=== PATIENT | male | born 1955 | race African-American/Black ===

== ENCOUNTER 2019-07-12 13:23 | Emergency (ER) | payer MEDICARE, OTHER ==
[~2019-07-12] VITALS: Ht 167.6 cm; Wt 85.0 kg
[2019-07-12] MEDS ORDERED: MECLIZINE 25MG TABLET PO ONE (17:45)
[2019-07-12 18:15] LABS: BASOPHILS % 1.1 % (0.0-2.0); EOSINOPHILS % 3.3 % (0.0-5.0); HEMATOCRIT. 44.8 % (42.0-52.0); HEMOGLOBIN. 15.2 g/dL (14.0-18.0); MEAN CORPUSCULAR HEMOGLOBIN 32.8 pg (28.0-32.0); MEAN CORPUSCULAR VOLUME 96.4 fL (80.0-94.0); MONOCYTES % 10.3 % (2.0-8.0); NEUTROPHILS % 58.3 % (40.0-76.0); PLATELET 225 x1000/uL (130-400); RED BLOOD CELL COUNT 4.65 mill/uL (4.7-6.1)
[2019-07-12 18:16] LABS: CHLORIDE 108 mEq/L (98-107)
[2019-07-12 19:30] VITALS: BP 150/84
== END 2019-07-12 20:12 | disposition home or self-care (01) ==
LOC: ER 13:23
DX: R42 Dizziness and giddiness (principal)
CPT/HCPCS: 36415; 71045; 80053; 83880; 84484; 85025; 93005; 99284; J8597